=== PATIENT | female | born 1970 | race African-American/Black ===

== ENCOUNTER 2017-03-11 17:27 | Emergency (ER) | payer MEDICAID ==
[~2017-03-11] VITALS: Ht 167.6 cm; Wt 81.0 kg
[2017-03-11 17:51] VITALS: BP 146/87
[2017-03-11] MEDS ORDERED: BACITRACIN ZINC OINT UDPKT TOP ONE (22:30)
[2017-03-11] MEDS ORDERED: TETANUS, DIPHTHERIA, PERTUSSIS VAC/PF 0.5ML (>7YR OLD) IM ONE (22:30)
== END 2017-03-12 00:10 | disposition home or self-care (01) ==
LOC: ER 21:49
DX: S50.912A Unspecified superficial injury of left forearm, initial encounter (principal); S50.911A Unspecified superficial injury of right forearm, initial encounter; M54.2 Cervicalgia; I10 Essential (primary) hypertension; F17.210 Nicotine dependence, cigarettes, uncomplicated; Y04.1XXA Assault by human bite, initial encounter; Y93.89 Activity, other specified; Y92.89 Other specified places as the place of occurrence of the external cause; Y99.8 Other external cause status
CPT/HCPCS: 90471; 90715; 99283; X7700; Z7610